=== PATIENT | male | born 1960 | race Caucasian/White ===

== ENCOUNTER 2023-01-01 12:32 | Day surgery (SDC) | payer BC ==
[2022-12-31 15:13] VITALS: BMI 33.3
[~2023-01-01 12:32] MED LIST: EPINEPHrine 0.3 MG in Ophthalmic Irrigation Solution 500 ML IRR SCH; Midazolam HCl 2 mg/2 ml Vial ONE; fentaNYL 50 mcg/mL 1 mL Vial ONE
[2023-01-01] MEDS ORDERED: Cyclopentolate 0.5% Opth Drops 15 ML BOT ONE (13:07)
[2023-01-01] MEDS ORDERED: PHENYLephrine 2.5% Ophth Soln 15 ml Bottle ONE (13:07)
[2023-01-01] MEDS ORDERED: CEFAZOLIN 1 GM VIAL ONE (14:06)
[2023-01-01] MEDS ORDERED: Bupivacaine 0.75% 10 ML VIAL ONE (14:06)
[2023-01-01] MEDS ORDERED: PROPOFOL 200 MG/20 ML VIAL ONE (14:06)
[2023-01-01] MEDS ORDERED: Lidocaine 4% PF 5 ML AMP ONE (14:06)
[2023-01-01] MEDS ORDERED: Lidocaine 1% PF 5 ML VIAL ONE (14:06)
[2023-01-01] MEDS ORDERED: Triamcinolone 40 MG/ML VIAL ONE (14:06)
[2023-01-01] MEDS ORDERED: Maxitrol 0.1% Opth Oint 3.5 GM TUBE ONE (14:06)
== END 2023-01-01 15:28 | disposition home or self-care (01) ==
LOC: SDC 12:32
PROVIDERS: ATTEND Ophthalmology Retina Specialist
PROC: 08DK3ZZ Extraction of Left Lens, Percutaneous Approach (ICD-10-PCS; principal; 2023-01-01)
PROC: 08T53ZZ Resection of Left Vitreous, Percutaneous Approach (ICD-10-PCS; principal; 2023-01-01)
DX: H33.002 Unspecified retinal detachment with retinal break, left eye (principal); Z88.2 Allergy status to sulfonamides
CPT/HCPCS: 67025; J0171; J0690; J2250; J2704; J3010; J3301; J3490